=== PATIENT | female | born 2000 | race Caucasian/White ===

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

== ENCOUNTER 2019-03-09 04:28 | Emergency (ER) | payer OTHER, SELFPAY ==
[2019-03-09 04:30] VITALS: BP 134/75; PULSE 110; RESP 20; TEMP 37.7; O2SAT 99; BMI 20.3
--- NOTE | 2019-03-09 04:40 | CT_ITS ---
STUDY: CT ABDOMEN AND PELVIS WITH CONTRAST REASON FOR EXAM: Female, 18 years old. Abdominal pain RADIATION DOSAGE (If Supplied By Facility): CTDIvol = ( 4.55 ) mGy, DLP = ( 284.61 ) mGycm TECHNIQUE: Transaxial images were obtained from the dome of the diaphragm to the symphysis pubis without oral contrast. IV Isovue 370 75ml was administered. Sagittal and coronal images were reconstructed. Individualized dose optimization techniques were used for this CT. COMPARISON: None. FINDINGS: The visualized lung bases are unremarkable. There is a pericardial effusion. There is hepatomegaly with diffuse hepatic enlargement. Normal gallbladder and extrahepatic biliary system. Normal spleen. Normal pancreas. Normal bilateral adrenal glands. Normal right kidney. Normal left kidney. Normal visualized stomach. Evaluation of bowel is limited by the lack of oral contrast material. No dilated loops of small bowel by CT criteria. Fluid-filled distended loops of small bowel within the abdomen. No free air identified. Small amount of fluid within the lower abdomen. There is colonic wall thickening involving the cecum, ascending colon and portions of the transverse colon. Correlate for colitis, infectious inflammatory versus ischemic. There are surgical clips in the region of the appendix consistent with a prior appendectomy. Normal abdominal aorta. Normal inferior vena cava. Normal retroperitoneum. Normal urinary bladder. Small amount of fluid in the pelvis. Normal abdominal wall. Normal osseous structures. CT/Abdomen/Pelvis W IV Cont ONLY IMPRESSION: No pericardial effusion. Small amount of fluid within the lower abdomen and pelvis. Clips at the base of the cecum with history of prior appendectomy. There is colonic wall thickening involving the cecum, ascending colon and portions of the transverse colon. Correlate for colitis, infectious inflammatory versus ischemic. There is no free air identified. Minimal thickening of the terminal ileum. This may represent inflammatory bowel disease in the appropriate clinical setting. There is some fluid distended loops of small bowel without dilatation by CT criteria, nonspecific however may be related to enteritis in the appropriate clinical setting. Electronically Signed: Berlin Delgado, at 5:49 EST Tel , Service support ,
[2019-03-09 04:49] LABS: Absolute Lymphocyte Count 0.52 X10^3/uL (0.83-4.51); Absolute Neutrophil Count 10.6 X10^3/uL (2.0-7.7); Basophil# 0.02 X10^3/uL; Basophil% 0.2 % (0-1); Eosinophil# 0.07 X10^3/uL; Eosinophils% 0.6 % (0-5); Hemoglobin 13.8 g/dL (12.0-15.0); Lymphocyte # 0.52 X10^3/ul (4.0); Lymphocyte % 4.4 % (19-41); Mean Corp Hgb Conc 33.7 g/dL (32-36); Mean Corpuscular Hgb 29.9 pg (27.0-32.0); Mean Corpuscular Volume 88.9 fL (81-99); Mean Platelet Vol. 10.6 fl (6.2-12.0); Monocyte# 0.54 X10^3/uL; Monocyte% 4.6 % (0-10); NRBC Flagged by Analyzer 0 % (0-5); Neutrophil # 10.59 X10^3/uL (2.7-7.7); Neutrophil % 89.6 % (47-70); POSITIVE COUNT YES; POSITIVE DIFFERENTIAL YES; Platelet Count 221 K/mm3 (150-450); RBC Distribution Width CV 12.2 % (11.6-14.6); RBC Distribution Width SD 39.6 fl (35.1-43.9); Red Blood Count 4.61 M/mm3 (4.2-5.4); White Blood Count 11.8 K/mm3 (4.4-11.0)
[2019-03-09 04:51] LABS: Differential Indicated SCAN CRITERIA MET
[2019-03-09] MEDS: 0.9% Normal Saline 1,000 ML 1000 ML IV (04:53)
[2019-03-09 04:54] LABS: Bacteria 0 SEEN /hpf (None Seen); Mucous, Urine 0 SEEN /hpf (<or=2+)
[2019-03-09] MEDS: Ondansetron 4 MG/2 ML Vial IV (04:54)
[2019-03-09] MEDS: Morphine 4 MG/ML Syringe IV (04:54)
[2019-03-09 05:03] LABS: Internal QC Validated? YES +Cl - CLEAR BKGD; Pregnancy, Serum, hCG Quali. NEGATIVE Negative
[2019-03-09 05:10] LABS: Color, Urine Yellow (Yellow); Glucose, Dipstick Normal (Normal); Ketone-Dipstick 5 mg/dl (Negative); Leukocyte Esterase-Dipstick 25 /ul (Negative); Nitrite-Dipstick Negative (Negative); Occult Blood-Urine 250 /ul (Negative); Protein-Dipstick 30 mg/dl (Negative); Urine Bilirubin Dipstick Negative (Negative); Urine Clarity Clear (Clear); Urine Urobilinogen Normal (Normal)
[2019-03-09 05:17] LABS: Red Blood Cells-Urine 5-10 SEEN /hpf (0-5); Squamous Epithelial Cells - UA 0-5 SEEN /hpf (5-10); White Blood Cells 5-10 SEEN /hpf (0-5)
[2019-03-09 05:18] LABS: Platelet Estimate ADEQUATE (ADEQ); Platelet Morphology CLUMPED
[2019-03-09 05:49] LABS: BUN 8 mg/dL (7-18); Glucose 99 mg/dL (74-106)
[2019-03-09 05:50] LABS: ALB/GLOB Ratio 0.8 RATIO (0.9-2.4); AST(SGOT) 51 U/L (15-37); Alanine Aminotransfer ALT/SGPT 43 U/L (13-56); Albumin, Serum 3.3 g/dL (3.2-5.0); Alkaline Phosphatase 62 U/L (45-117); Calcium,Total 8.6 mg/dL (8.5-10.1); Estimated Creatinine Clearance 101.29 ml/min; Globulin 4.1 g/dL (2.2-4.2); Lipase 84 U/L (73-393); Protein, Total 7.4 g/dL (6.4-8.2); Sodium Level 135 mmol/L (136-145)
[2019-03-09 05:51] LABS: Anion Gap 8 (5-15); Chloride 106 mmol/L (98-107); Potassium 4.1 mmol/L (3.5-5.1)
--- NOTE | 2019-03-09 06:05 | ED.DCSUM_ITS ---
- ER Visit Summary Date of Service: 03/09/19 Chief Complaint: Pain History of Present Illness: The patient is a 18 F with right lower quadrant abdominal pain for just over 24 hours. It does not radiate. The patient has tried [id number]-eiy-rcoerti remedies with no relief. She has associated nausea, diarrhea, and a fever as high as 101.3. She is otherwise healthy. History of appendectomy. Physical Examination: Afebrile and vital signs unremarkable except for heart rate of 110. The patient appears uncomfortable but not toxic or in distress. Right lower quadrant is tender to palpation without guarding or rebound. No CVA tenderness. Pelvic exam deferred secondary to no discharge or bleeding. Test Results: White count was 11.8. Sodium 135, AST 51. Lipase normal. Urinalysis shows no obvious signs of infection. hCG negative. CT showed postoperative changes. Small amount of fluid in the lower abdomen. There are findings concerning for colitis changes, infectious versus inflammatory versus ischemic in the region of the cecum, ascending colon and transverse colon. There are also findings concerning for possible enteritis. Emergency Department Course and Treatment: Patient presents with lower abdominal pain, nausea, and diarrhea. Fevers. She has findings concerning for enteritis versus colitis. I do not believe she has ischemic colitis based on her age, presentation, and risk factors. I advised that she may have an infectious etiology or possibly even an inflammatory bowel disease. We will try treatment with Cipro and Flagyl. She was also given a course of Zofran and Percocet as needed. Follow-up with primary care. If her symptoms are worsening, she should return for further evaluation and possible further care in the hospital. Otherwise, she should check in with her PCP. She was advised she may need additional testing. All questions were answered. Return if worse. Treatment Plan: As above Disposition: Discharge Impression: 1. Colitis This note was generated with [employer] software. It may contain incorrect words, spelling, and punctuation that were not noted in review of the chart prior to signing ED Disposition - Plan for ED Patient: Referrals: Care Physician,No Primary [Primary Care Provider] -
--- NOTE | 2019-03-09 06:07 | ED.DEP ---
ED Disposition - Plan for ED Patient: Instructions: GASTROENTERITIS, Viral (4y-Adult), GASTROENTERITIS, Bacterial (Child) (Adult) Prescriptions: Ciprofloxacin [Cipro] 500 mg PO BID #20 tab Prescription Printed metroNIDAZOLE [Flagyl] 500 mg PO Q8H #30 tab Prescription Printed Oxycodone HCl/Acetaminophen [Percocet 5/325] 1 tab PO Q6H PRN PRN 3 Days #12 tab PRN Reason: Pain Prescription Printed Ondansetron [Zofran Odt] 4 mg PO Q8H PRN PRN #10 tab PRN Reason: Nausea Prescription Printed Additional Instructions: Follow up with your primary doctor even if you are feeling better. Return to the ED right away if you are worse or if you have any new symptoms.
[2019-03-09] MEDS: metroNIDAZOLE 500 MG Tablet PO (06:10)
[2019-03-09] MEDS: Ciprofloxacin 500 MG Tablet PO (06:10)
[2019-03-09 06:15] VITALS: BP 122/65; PULSE 87; RESP 18; O2SAT 95
[2019-03-16 05:18] LABS: EST Glomerular Filtration Rate 97 mL/min (>60); Est Glom Filt Rate - Afr Amer 117 mL/min (>60)
== END 2019-03-09 06:17 | disposition home or self-care (01) ==
LOC: ED 04:50
PROVIDERS: Emergency Provider Emergency Medicine
DX: K52.9 Noninfective gastroenteritis and colitis, unspecified (principal)
CPT/HCPCS: 74177; 80053; 81001; 83690; 84703; 85025; 96361; 96374; 96375; 99284; J7030; Q9967; A4216; J2405

== ENCOUNTER 2020-02-11 09:05 | Emergency (ER) | payer OTHER, SELFPAY ==
[2020-02-11 09:05] VITALS: BP 101/57; PULSE 85; RESP 14; TEMP 36.8; O2SAT 99; BMI 19.2
--- NOTE | 2020-02-11 10:23 | ED.VIS.GEN ---
History of Present Illness Chief Complaint: Weakness Narrative: Patient presenting for evaluation secondary to generalized weakness. Patient had a tonsillectomy performed at [facility] on Friday. Patient states that since then she has been feeling generally weak, nauseous, and having some difficulty with swallowing liquids. She is able to swallow liquids but due to the pain she has had decreased p.o. intake. She really has not been eating much. Patient states that today she was felt lightheaded on standing. She denies any chest pain or palpitations. She denies any fevers. Review of systems otherwise negative. Past Medical History - Allergies and Home Meds Allergies/Adverse Reactions: Allergies No Known Allergies Allergy (Verified 03/09/19 04:33) Primary Care Physician: Care Physician,No Primary [NON-STAFF] - Prior records reviewed: Yes Past Medical History: None Surgical History: tonsillectomy Lives: With Family Smoking Status: Current every day smoker Review of Systems All systems negative except as indicated General: Reports: - - Lightheadedness Eyes: Denies: Visual changes - bilaterally, Diplopia ENT: Reports: Sore throat Cardiovascular: Denies: Chest pain, Palpitations Respiratory: Denies: Dyspnea, Cough, Dyspnea on exertion Gastrointestinal: Reports: Nausea Genitourinary: Denies: Dysuria, Hematuria, Frequency Musculoskeletal: Denies: Back pain, Extremity Pain Skin: Denies: Rash, Wounds Neurological: Denies: Headache, Weakness, Numbness Physical Exam Vital Signs/Narrative: Vital Signs Temp Pulse Resp BP Pulse Ox 02/11/20 09:05 98.3 F 85 14 101/57 L 99 Inital Vital Signs reviewed: Yes General: Well nourished, Well developed, No Acute Distress Head: Normocephalic, Atraumatic Eyes: Perrl, EOMI ENT: Moist mucous membranes, No rhinorrhea, - - Operative changes noted of the patient's posterior oropharynx, no active bleeding, oropharynx and airway are patent. Neck: Supple, Nontender Cardiovascular: Regular rate, Regular rhythm, No murmurs Respiratory: No distress, CTA bilaterally, Chest nontender Abdomen: Soft, Nontender, Nondistended, Normal bowel sounds Back: Nontender, Normal Inspection Extremities: Nontender, No edema Skin: Normal color, No rash Neurological: Alert, Oriented x3, Cranial nerves II-XII grossly intact, Normal Strength, Normal Sensation Psychological: Normal affect, Normal Mood Diagnostic/Tx/Re-eval Laboratory Data 02/11/20 02/11/20 10:52 10:52 WBC 6.9 RBC 4.10 L Hgb 12.3 Hct 37.9 MCV 92.4 MCH 30.0 MCHC 32.5 RDW Std Deviation 38.2 RDW Coeff of Lidia 11.3 L Plt Count 298 MPV 10.6 Immature Gran % (Auto) 0.400 Neut % (Auto) 77.8 H Lymph % (Auto) 13.8 L [place] % (Auto) 7.3 Eos % (Auto) 0.4 Baso % (Auto) 0.3 Absolute Neuts (auto) 5.4 Absolute Lymphs (auto) 0.95 Nucleated RBC % 0 Sodium 138 Potassium 3.9 Chloride 105 Carbon Dioxide 30.0 Anion Gap 3 L BUN 11 Creatinine 0.65 Estim Creat Clear Calc 116.71 Est GFR (MDRD) Af Amer 148 Est GFR (MDRD) Non-Af 122 BUN/Creatinine Ratio 17.0 Glucose 84 Calcium 9.0 - Medical Decision Making Patient presented secondary to nausea and generalized weakness after tonsillectomy. She does not have any evidence of sepsis, infection, or postoperative bleeding. She was given a liter of fluids. She said that Zofran really was not working, she was given a dose of Reglan and had improvement on repeat evaluation. I believe the patient is safe for discharge at this time, her laboratory work-up was benign. Patient will be sent home with a course of Phenergan for treatment of her nausea and continued supportive care. ED Disposition - Plan for ED Patient: Disposition: Home or Assisted Living Diagnosis: Dehydration Instructions: ED Dehydration Adult Prescriptions: proMETHazine tablet [Phenergan] 25 mg PO Q6H PRN PRN #10 tab PRN Reason: Nausea Prescription Printed Additional Instructions: Follow-up with your ENT as previously scheduled
[2020-02-11] MEDS: 0.9% Normal Saline 1,000 ML 1000 ML IV (10:58)
[2020-02-11] MEDS: Metoclopramide 10 MG/2 ML Vial 5 MG IV (10:59)
[2020-02-11 11:00] VITALS: BP 107/62; PULSE 71; RESP 16; O2SAT 98
[2020-02-11 11:26] LABS: Anion Gap 3 (5-15); BUN 11 mg/dL (7-18); Chloride 105 mmol/L (98-107); Creatinine, Serum 0.65 mg/dL (0.55-1.02); EST Glomerular Filtration Rate 122 mL/min (>60); Est Glom Filt Rate - Afr Amer 148 mL/min (>60); Estimated Creatinine Clearance 116.71 ml/min; Glucose 84 mg/dL (74-106); Potassium 3.9 mmol/L (3.5-5.1); Sodium Level 138 mmol/L (136-145)
[2020-02-11 11:30] LABS: Absolute Lymphocyte Count 0.95 X10^3/uL (0.83-4.51); Absolute Neutrophil Count 5.4 X10^3/uL (2.0-7.7); Basophil# 0.02 X10^3/uL; Basophil% 0.3 % (0-1); Eosinophil# 0.03 X10^3/uL; Eosinophils% 0.4 % (0-5); Hematocrit 37.9 % (37-47); Hemoglobin 12.3 g/dL (12.0-15.0); Lymphocyte # 0.95 X10^3/ul (4.0); Lymphocyte % 13.8 % (19-41); Mean Corp Hgb Conc 32.5 g/dL (32-36); Mean Corpuscular Volume 92.4 fL (81-99); Mean Platelet Vol. 10.6 fl (6.2-12.0); Monocyte% 7.3 % (0-10); NRBC Flagged by Analyzer 0 % (0-5); Neutrophil # 5.35 X10^3/uL (2.7-7.7); Neutrophil % 77.8 % (47-70); Platelet Count 298 K/mm3 (150-450); RBC Distribution Width CV 11.3 % (11.6-14.6); RBC Distribution Width SD 38.2 fl (35.1-43.9); White Blood Count 6.9 K/mm3 (4.4-11.0)
== END 2020-02-11 11:54 | disposition home or self-care (01) ==
PROVIDERS: Emergency Provider Emergency Medicine
DX: E86.0 Dehydration (principal); F17.200 Nicotine dependence, unspecified, uncomplicated
CPT/HCPCS: 80048; 85025; 96361; 96374; 99283; J7030; A4216